=== PATIENT | male | born 1980 | race Caucasian/White ===

== ENCOUNTER 2016-12-05 13:40 | Emergency (ER) | payer BC ==
[~2016-12-05] VITALS: Ht 182.9 cm; Wt 81.2 kg
[~2016-12-05 13:40] MED LIST: CIPRO500 MG PO; FLOMAX0.4 MG PO; KEFLEX500 MG PO; MOTRIN800 MG PO; NOHOMEMEDS; NORCO 5/3251 TABLET PO; PERCOCET 5/31 TABLET PO; PERCOCET 7.51 TABLET PO; PROMETHAZINE HC25 M1 PO; ZOFRAN ODT4 MG PO; ZOFRAN ODT8 MG PO
[2016-12-05 14:36] LABS: HEMATOCRIT 48.5 % (38.0-50.0); MCH 33.2 PG (29.0-34.0); MCHC 35.7 G/DL (30.0-36.0); MCV 93.1 FL (86-99); MEAN PLAT.VOLUME 9.8 uM^3 (9.0-12.4); PLATELET COUNT 281 K/uL (156-360); RBC DIS.WIDTH-CV 12.6 % (11.8-14.6); RBC DIS.WIDTH-SD 43.4 % (39-53); RED BLOOD COUNT 5.21 M/uL (4.00-5.50); WHITE BLOOD COUNT 11.9 K/uL (4.1-10.2)
[2016-12-05 14:49] LABS: CHLORIDE 107 mEq/L (99-109); GLUCOSE 114 mg/dL (70-99); POTASSIUM 4.4 mEq/L (3.7-5.4); SODIUM 142 mEq/L (136-147)
[2016-12-05 14:50] LABS: ANION GAP 15 MEQ/L (2-14)
[2016-12-05 14:53] LABS: GFR ESTIMATE (CALCULATED) > 59 mL/min/
[2016-12-05 14:54] LABS: UREA NITROGEN (BUN) 12 mg/dL (9-23)
[2016-12-05 14:58] LABS: TOTAL BILIRUBIN 0.8 mg/dL (0.0-1.0)
[2016-12-05 14:59] LABS: ALKALINE PHOSPHATASE 64 IU/L (3-129)
[2016-12-05 15:02] LABS: DIRECT BILIRUBIN 0.3 mg/dL (0.0-0.3)
[2016-12-05 15:03] LABS: CREATINE KINASE 85 IU/L (1-294); LIPASE 38 U/L (1.0-51.0)
[2016-12-05 15:11] LABS: ADD MIUA? YES; BILIRUBIN NEGATIVE; BLOOD MODERATE; COLOR YELLOW ((YELLOW)); GLUCOSE (STRIP) NEGATIVE; KETONES 20; LEUKOCYTES NEGATIVE; NITRITE NEGATIVE; PROTEIN (STRIP) 100; SPECIFIC GRAVITY 1.017 (1.000-1.030); UROBILINOGEN 0.2 MG/DL (0.2-1.0)
[2016-12-05 15:18] LABS: BACTERIA RARE /HPF; EPITHELIAL CELLS RARE /HPF; MUCUS TRACE /LPF; RED BLOOD CELLS TNTC /HPF (0-5); UCUL ADDED? NO; WHITE BLOOD CELLS 0-5 /HPF (0-5)
[2016-12-05 15:35] LABS: AMPHETAMINE NEGATIVE (500 ng/mL); BARBITURATES NEGATIVE (200 ng/mL); BENZODIAZEPINES NEGATIVE (150 ng/mL); COCAINE NEGATIVE (150 ng/mL); INTERNAL CONTROLS VALID? YES; METHADONE NEGATIVE (200 ng/mL); METHAMPHETAMINE NEGATIVE (500 ng/mL); OPIATES (MORPHINE) NEGATIVE (100 ng/mL); OXYCODONE NEGATIVE (100 ng/mL); PHENCYCLIDINE NEGATIVE (25 ng/mL); PROPOXYPHENE NEGATIVE (300 ng/mL); THC CANNABINOIDS PRESUMPTIVE POSITIVE (50 ng/mL); TRICYCLIC ANTIDEPRESSANTS NEGATIVE (300 ng/mL)
[2016-12-05 15:36] LABS: ADD MEDTOX COMMENT Y
[2016-12-05] MEDS ORDERED: NORCO 7.5/321 TABLET PO (17:13)
[2016-12-05] MEDS ORDERED: ZOFRAN ODT4 MG PO (17:13)
[2016-12-05] MEDS ORDERED: KEFLEX500 MG PO (17:13)
[2016-12-05] MEDS ORDERED: MOTRIN800 MG PO (17:13)
[2016-12-05] MEDS ORDERED: PYRIDIUM200 MG PO (17:15)
[2016-12-05 17:30] VITALS: BP 100/58
== END 2016-12-05 17:30 | disposition home or self-care (01) ==
LOC: EME 13:40
PROVIDERS: Physician Assistant
DX: N30.91 Cystitis, unspecified with hematuria (principal); N21.0 Calculus in bladder; N20.0 Calculus of kidney; Z87.442 Personal history of urinary calculi; F17.200 Nicotine dependence, unspecified, uncomplicated
CPT/HCPCS: 74176; 80048; 80076; 81003; 82550; 83690; 84999; 85027; 87086; 87491; 87591; 99281; 99284; J0696; J1885; J3010